=== PATIENT | female | born 1940 | race Caucasian/White ===

== ENCOUNTER 2018-08-16 16:32 | Inpatient (IN) | payer BC, MEDICARE ==
[~2018-08-16] VITALS: Ht 172.7 cm; Wt 68.2 kg
[2018-08-16] MEDS ORDERED: SODIUM CHLORIDE 0.9% 1,000ML IVBOLUS ONE (17:00)
[2018-08-16] MEDS ORDERED: PLEASE ENTER ALLERGIES MC SCH (17:00)
[2018-08-16] MEDS ORDERED: SODIUM CHLORIDE FLUSH 10ML SYR IVF ONE (17:00)
[2018-08-16] MEDS ORDERED: PLEASE ENTER HEIGHT AND WEIGHT MC SCH (17:00)
[2018-08-16 17:12] LABS: MEAN CORPUSCULAR HEMOGLOBIN 32.3 pg (27.0-34.8); MEAN CORPUSCULAR HGB CONC 32.7 g/dL (32.4-35.8); MEAN CORPUSCULAR VOLUME 98.8 fL (80-100); MEAN PLATELET VOLUME 12.2 fL (7.4-10.4); PLATELET COUNT 168 x10^3/uL (130-400); RED BLOOD COUNT 5.18 x10^6/uL (3.82-5.3); RED CELL DISTRIBUTION WIDTH 14.2 % (9.6-15.2)
[2018-08-16 17:13] LABS: MD YES
[2018-08-16 17:24] LABS: ALANINE AMINOTRANSFERASE 54 U/L (12-78); ALBUMIN 3.2 g/dL (3.4-5.0); ANION GAP 12 mmol/L (5-15); CALCIUM 9.2 mg/dL (8.5-10.1); CHLORIDE 128 mmol/L (98-107); CREATININE 8.35 mg/dL (0.55-1.02)
[2018-08-16 17:26] LABS: ALKALINE PHOSPHATASE 149 U/L (45-117); BILIRUBIN,TOTAL 0.4 mg/dL (0.2-1.0); TOTAL PROTEIN 7.9 g/dL (6.4-8.2)
[2018-08-16] MEDS ORDERED: SODIUM CHLORIDE 0.9%, 500ML IVBOLUS ONE (17:30)
[2018-08-16] MEDS ORDERED: METRONIDAZOLE PMX 500MG/100ML 100 ML IV ONE (17:30)
[2018-08-16] MEDS ORDERED: CEFTRIAXONE PMX 1GM/50ML 50 ML IV ONE (17:30)
[2018-08-16 17:46] LABS: <PLATELET ESTIMATE> ADEQUATE; <RBC MORPHOLOGY> NORMAL; BAND#(MANUAL) 0.57 x10^3/uL; BANDS%(MANUAL) 2 % (0-7); LYMPH#(MANUAL) 2.85 x10^3/uL (1-3.4); LYMPHS% (MANUAL) 10 % (22-44); MONOS#(MANUAL) 1.14 x10^3/uL (0.3-2.7); MONOS% (MANUAL) 4 % (2-9); SEG#(MANUAL) 23.94 x10^3/uL (1.8-6.8); SEGS% (MANUAL) 84 % (42-75)
[2018-08-16 17:47] LABS: LARGE PLATELETS 1+
[2018-08-16 17:47] LABS: MICROSCOPIC INDICATED
[2018-08-16 18:06] LABS: CULTURE INDICATED? NO
[2018-08-16] MEDS ORDERED: CEFTRIAXONE PMX 1GM/50ML 50 ML ONE (18:51)
[2018-08-16 19:00] LABS: CLOSTRIDIUM DIFFICILE ANTIGEN NEGATIVE; CLOSTRIDIUM DIFFICILE TOXIN NEGATIVE (Negative)
[2018-08-16] MEDS ORDERED: POLYETHYLENE GLYCOL 17 GM PACKET PO PRN (19:30)
[2018-08-16] MEDS ORDERED: BISACODYL 10 MG SUPP PR PRN (19:30)
[2018-08-16] MEDS ORDERED: ONDANSETRON 2MG/ML, 2ML IVPush PRN (19:30)
[2018-08-16] MEDS ORDERED: DEXTROSE 5% 1,000 ML IV SCH (19:30)
[2018-08-16] MEDS ORDERED: ONDANSETRON ODT 4 MG PO PRN (19:30)
[2018-08-16] MEDS ORDERED: METRONIDAZOLE PMX 500MG/100ML 100 ML ONE (19:37)
[2018-08-16] MEDS: D5%-0.45% NACL 1,000 ML IV SCH (19:42)
[2018-08-16] MEDS ORDERED: AZIT250T PO (20:05)
[2018-08-16] MEDS ORDERED: DOCU-186 PO (20:05)
[2018-08-16] MEDS ORDERED: LISI-170 PO (20:05)
[2018-08-16] MEDS ORDERED: METO50TA82 PO (20:05)
[2018-08-16] MEDS ORDERED: MULT1TAB81 PEG (20:05)
[2018-08-16] MEDS ORDERED: BENZ-17 PO (20:05)
[2018-08-16] MEDS ORDERED: POTA10TA31 PO (20:05)
[2018-08-16] MEDS ORDERED: MINE120C TP (20:05)
[2018-08-16] MEDS ORDERED: MAGN400O7 PO (20:05)
[2018-08-16] MEDS ORDERED: TRAM50TA2 PO (20:05)
[2018-08-16] MEDS ORDERED: FURO20TA3 PO (20:05)
[2018-08-16] MEDS ORDERED: ACET325T14 PO (20:05)
[2018-08-16] MEDS ORDERED: CALC-666 PO (20:05)
[2018-08-16 20:14] VITALS: BP 102/69
[2018-08-16 20:48] VITALS: BP 102/69
[2018-08-17] MEDS: D5%-0.45% NACL 1,000 ML IV SCH (00:23)
[2018-08-17] MEDS: DEXTROSE 5% 1,000 ML IV SCH ×3 (01:32→15:20)
[2018-08-17 02:08] VITALS: BP 108/72
[2018-08-17 05:12] LABS: MEAN CORPUSCULAR HEMOGLOBIN 32.6 pg (27.0-34.8); MEAN CORPUSCULAR HGB CONC 32.7 g/dL (32.4-35.8); MEAN CORPUSCULAR VOLUME 99.8 fL (80-100); MEAN PLATELET VOLUME 11.8 fL (7.4-10.4); PLATELET COUNT 121 x10^3/uL (130-400); RED BLOOD COUNT 4.08 x10^6/uL (3.82-5.3); RED CELL DISTRIBUTION WIDTH 14.4 % (9.6-15.2)
[2018-08-17 05:21] LABS: ANION GAP 11 mmol/L (5-15); CALCIUM 7.8 mg/dL (8.5-10.1); CHLORIDE 131 mmol/L (98-107)
[2018-08-17 05:22] LABS: CREATININE 6.91 mg/dL (0.55-1.02)
[2018-08-17 05:44] LABS: BASOPHILS # (AUTO) 0.04 x10^3/uL (0-0.1); BASOPHILS % (AUTO) 0 % (0-1); EOSINOPHILS # (AUTO) 0.11 x10^3/uL (0-0.4); EOSINOPHILS % (AUTO) 1 % (1-7); LYMPHOCYTES % (AUTO) 8 % (22-44); MD SCAN; MONOCYTES # (AUTO) 0.93 x10^3/uL (0.2-0.8); MONOCYTES % (AUTO) 5 % (2-9); NEUTROPHILS # (AUTO) 17.86 x10^3/uL (1.8-6.8); NEUTROPHILS % (AUTO) 87 % (42-75)
[2018-08-17 07:50] VITALS: BP 99/64
[2018-08-17 12:32] VITALS: BP 99/54
[2018-08-17 20:03] VITALS: BP 105/66
[2018-08-18] MEDS ORDERED: DEXTROSE 5% 1,000 ML IV SCH (01:00)
[2018-08-18 02:29] VITALS: BP 98/62
[2018-08-18 05:52] LABS: CHLORIDE 121 mmol/L (98-107)
[2018-08-18 05:59] LABS: ALANINE AMINOTRANSFERASE 34 U/L (12-78); ALKALINE PHOSPHATASE 97 U/L (45-117); ANION GAP 10 mmol/L (5-15); BILIRUBIN,TOTAL 0.3 mg/dL (0.2-1.0); CALCIUM 7.3 mg/dL (8.5-10.1); CREATININE 4.62 mg/dL (0.55-1.02); TOTAL PROTEIN 5.4 g/dL (6.4-8.2)
[2018-08-18 06:30] LABS: BASOPHILS # (AUTO) 0.03 x10^3/uL (0-0.1); BASOPHILS % (AUTO) 0 % (0-1); EOSINOPHILS % (AUTO) 4 % (1-7); LYMPHOCYTES # (AUTO) 2.37 x10^3/uL (1-3.4); LYMPHOCYTES % (AUTO) 17 % (22-44); MD NO; MEAN CORPUSCULAR HEMOGLOBIN 32.8 pg (27.0-34.8); MEAN CORPUSCULAR HGB CONC 33.4 g/dL (32.4-35.8); MEAN CORPUSCULAR VOLUME 98.2 fL (80-100); MEAN PLATELET VOLUME 11.4 fL (7.4-10.4); MONOCYTES # (AUTO) 0.56 x10^3/uL (0.2-0.8); MONOCYTES % (AUTO) 4 % (2-9); NEUTROPHILS # (AUTO) 10.18 x10^3/uL (1.8-6.8); NEUTROPHILS % (AUTO) 75 % (42-75); PLATELET COUNT 120 x10^3/uL (130-400); RED BLOOD COUNT 4.05 x10^6/uL (3.82-5.3)
[2018-08-18 07:40] VITALS: BP 143/67
[2018-08-18] MEDS: DEXTROSE 5% 1,000 ML IV SCH (08:26)
[2018-08-18 13:40] VITALS: BP 96/60
[2018-08-18 19:28] VITALS: BP 90/55
[2018-08-19 02:12] VITALS: BP 127/75
[2018-08-19 05:06] LABS: BASOPHILS # (AUTO) 0.03 x10^3/uL (0-0.1); BASOPHILS % (AUTO) 0 % (0-1); EOSINOPHILS # (AUTO) 0.43 x10^3/uL (0-0.4); EOSINOPHILS % (AUTO) 4 % (1-7); LYMPHOCYTES % (AUTO) 16 % (22-44); MD NO; MEAN CORPUSCULAR HEMOGLOBIN 32.6 pg (27.0-34.8); MEAN CORPUSCULAR HGB CONC 33.8 g/dL (32.4-35.8); MEAN CORPUSCULAR VOLUME 96.7 fL (80-100); MEAN PLATELET VOLUME 11.1 fL (7.4-10.4); MONOCYTES # (AUTO) 0.59 x10^3/uL (0.2-0.8); MONOCYTES % (AUTO) 6 % (2-9); NEUTROPHILS # (AUTO) 7.08 x10^3/uL (1.8-6.8); NEUTROPHILS % (AUTO) 74 % (42-75); PLATELET COUNT 120 x10^3/uL (130-400); RED BLOOD COUNT 3.85 x10^6/uL (3.82-5.3); RED CELL DISTRIBUTION WIDTH 13.3 % (9.6-15.2)
[2018-08-19 05:12] LABS: ANION GAP 5 mmol/L (5-15); CALCIUM 7.1 mg/dL (8.5-10.1); CHLORIDE 119 mmol/L (98-107)
[2018-08-19 05:16] LABS: ALANINE AMINOTRANSFERASE 28 U/L (12-78); ALKALINE PHOSPHATASE 87 U/L (45-117); BILIRUBIN,TOTAL 0.3 mg/dL (0.2-1.0); CREATININE 3.56 mg/dL (0.55-1.02); TOTAL PROTEIN 5.1 g/dL (6.4-8.2)
[2018-08-19 08:11] VITALS: BP 104/63
[2018-08-19] MEDS: DEXTROSE 5% 1,000 ML IV SCH ×2 (08:51→20:52)
[2018-08-19] MEDS ORDERED: POTASSIUM CHLORIDE IV ONE ×2 (09:30→10:30)
[2018-08-19] MEDS ORDERED: SODIUM CHLORIDE 0.45% IV ONE ×2 (09:30→10:30)
[2018-08-19 12:25] VITALS: BP 101/63
[2018-08-19 19:33] VITALS: BP 108/63
[2018-08-20 00:38] VITALS: BP 99/62
[2018-08-20] MEDS: DEXTROSE 5% 1,000 ML IV SCH (07:38)
[2018-08-20 07:43] VITALS: BP 98/59
== END 2018-08-20 17:43 | disposition hospice, inpatient (51) | DRG 682 ==
LOC: ED 18:42 → EDIP 18:48 → SUATTDRO 19:03 → 4NOR 20:07
PROVIDERS: ADMIT Hospitalist; ATTEND Hospitalist
PROC: 0T9B70Z Drainage of Bladder with Drainage Device, Via Natural or Artificial Opening (ICD-10-PCS; principal; 2018-08-16)
DX: N17.0 Acute kidney failure with tubular necrosis (principal); G92 Toxic encephalopathy; E43 Unspecified severe protein-calorie malnutrition; R65.11 Systemic inflammatory response syndrome (SIRS) of non-infectious origin with acute organ dysfunction; E87.0 Hyperosmolality and hypernatremia; E86.0 Dehydration; F02.80 Dementia in other diseases classified elsewhere, unspecified severity, without behavioral disturbance, psychotic disturbance, mood disturbance, and anxiety; G30.9 Alzheimer's disease, unspecified; I44.7 Left bundle-branch block, unspecified; Z51.5 Encounter for palliative care; Z90.49 Acquired absence of other specified parts of digestive tract; Z68.22 Body mass index [BMI] 22.0-22.9, adult
CPT/HCPCS: 36415; 71045; 80048; 80053; 81001; 82550; 83605; 83735; 84100; 85025; 87040; 87046; 87324; 87427; 89055; 93005; 96360; 99285; G0378; J0696; J3480; J7070; J7030; J7040